=== PATIENT | male | born 1940 | race Caucasian/White ===

== ENCOUNTER 2016-06-11 08:45 | Day surgery (SDC) | payer MEDICARE, BC ==
[~2016-06-11] VITALS: Ht 170.2 cm; Wt 72.0 kg
[~2016-06-11 08:45] MED LIST: ASPI-496 PO; BRIN8DRO EACHEYE; LOVA20TA2 PO; MULT1TAB13 PO
[2016-06-11 09:50] LABS: HEMOGLOBIN 14.5 g/dL (13.7-18.0)
[2016-06-11] MEDS ORDERED: SODIUM CHLORIDE 0.9% 1,000 ML IV SCH (09:51)
[2016-06-11 09:52] VITALS: BP 133/74
[2016-06-11 10:14] LABS: DIFF TOTAL CELLS COUNTED 100 CELL DIFF
[2016-06-11 10:16] LABS: VERIFY COUNTS? YES
[2016-06-11] MEDS ORDERED: FENTANYL PF 100 MCG/2ML ONE (10:28)
[2016-06-11] MEDS ORDERED: MIDAZOLAM 1 MG/ML, 5ML ONE (10:29)
[2016-06-11] MEDS ORDERED: LIDOCAINE 4% TOPICAL SOLUTION 50 ML ONE (12:00)
[2016-06-11] MEDS ORDERED: EPINEPHRINE SYRINGE 0.1 MG/ML, 10ML ONE (12:00)
[2016-06-11] MEDS ORDERED: LIDOCAINE GEL 2%, 5ML ONE (12:00)
[2016-06-11] MEDS ORDERED: LIDOCAINE 2%, 20ML ONE (12:00)
== END 2016-06-11 14:10 | disposition home or self-care (01) ==
LOC: OUT 08:45
PROVIDERS: ATTEND Internal Medicine Pulmonary Disease
DX: J40 Bronchitis, not specified as acute or chronic (principal); Z87.891 Personal history of nicotine dependence
CPT/HCPCS: 31623; 31625; 36415; 85025; 85610; 85730; 87070; 87102; 87205; 88104; 88112; 88305; J2250; J3010; J3490; J7030; 31624

== ENCOUNTER → 2016-10-01 | Outpatient (CLI) | payer MEDICARE, BC ==
[~2016-10-01] MED LIST changes: +OMNIPAQUE 350 MG/ML, 75ML BOTTLE ONE
== END | disposition home or self-care (01) ==
LOC: CFH 08:34
PROVIDERS: ATTEND Internal Medicine Pulmonary Disease
DX: J44.9 Chronic obstructive pulmonary disease, unspecified (principal); J98.11 Atelectasis; I25.10 Atherosclerotic heart disease of native coronary artery without angina pectoris; R91.8 Other nonspecific abnormal finding of lung field
CPT/HCPCS: 71260; 82565; Q9967

== ENCOUNTER → 2017-01-22 | Outpatient (CLI) | payer MEDICARE, BC | END | disposition home or self-care (01) | LOC: CFH 09:23 | PROVIDERS: ATTEND Internal Medicine Pulmonary Disease | DX: J43.2 Centrilobular emphysema (principal); R91.1 Solitary pulmonary nodule; M85.88 Other specified disorders of bone density and structure, other site; M48.54XA Collapsed vertebra, not elsewhere classified, thoracic region, initial encounter for fracture; K76.89 Other specified diseases of liver; I25.10 Atherosclerotic heart disease of native coronary artery without angina pectoris | CPT/HCPCS: 71260; Q9967 ==

== ENCOUNTER 2017-02-13 10:24 | Observation (INO) | payer MEDICARE, BC ==
[~2017-02-13] VITALS: Ht 177.8 cm; Wt 71.0 kg
[~2017-02-13 10:24] MED LIST changes: +ALPR0.5T6 PO; -OMNIPAQUE 350 MG/ML, 75ML BOTTLE ONE; +areds PO
[2017-02-13] MEDS ORDERED: LACTATED RINGERS 1,000 ML IV SCH (10:45)
[2017-02-13 11:02] VITALS: BP 127/78
[2017-02-13] MEDS ORDERED: LIDOCAINE-MPF 2% ,5ML ONE (13:28)
[2017-02-13] MEDS ORDERED: MIDAZOLAM 1 MG/ML, 2ML ONE (13:28)
[2017-02-13] MEDS ORDERED: FENTANYL PF 100 MCG/2ML ONE ×2 (13:28)
[2017-02-13] MEDS ORDERED: PROPOFOL 10 MG/ML, 20ML ONE ×2 (13:28)
[2017-02-13] MEDS ORDERED: ROCURONIUM 10 MG/ML,10ML ONE (13:29)
[2017-02-13] MEDS ORDERED: NEOSTIGMINE 1 MG/ML, 10ML ONE (13:55)
[2017-02-13] MEDS ORDERED: DEXAMETHASONE 4 MG/ML, 1ML ONE ×2 (14:08)
[2017-02-13] MEDS ORDERED: ONDANSETRON 2MG/ML, 2ML ONE ×2 (15:24)
[2017-02-13] MEDS ORDERED: ONDANSETRON 2MG/ML, 2ML IVPush PRN (16:00)
[2017-02-13] MEDS ORDERED: FENTANYL PF 100 MCG/2ML IV PRN (16:00)
[2017-02-13] MEDS ORDERED: LABETALOL 5MG/ML, 20ML IV PRN (16:00)
[2017-02-13] MEDS ORDERED: OXYcodone 5 MG/5 ML ORAL.SOL UDC PO PRN (16:00)
[2017-02-13] MEDS ORDERED: hydrALAzine 20 MG/ML, 1ML IV PRN (16:00)
[2017-02-13] MEDS ORDERED: MEPERIDINE/PF 25MG/0.5ML IVPush PRN (16:00)
[2017-02-13] MEDS ORDERED: ACETAMINOPHEN 325 MG TABLET PO PRN (16:00)
[2017-02-13] MEDS ORDERED: ALBUTEROL SULFATE 2.5 MG/3 ML NPPB PRN (16:00)
[2017-02-13] MEDS ORDERED: PROMETHAZINE 25 MG/ML, 1ML IV PRN (16:00)
[2017-02-13] MEDS ORDERED: HYDROmorphone 1 MG/ML, 1ML IV PRN (16:00)
== END 2017-02-13 19:00 | disposition home or self-care (01) ==
LOC: OUT 10:24 → ORIP 15:59
PROVIDERS: ADMIT Internal Medicine Critical Care Medicine; ATTEND Internal Medicine Critical Care Medicine
DX: R59.1 Generalized enlarged lymph nodes (principal); R91.8 Other nonspecific abnormal finding of lung field; R06.00 Dyspnea, unspecified
CPT/HCPCS: 31623; 31625; 31627; 71010; 76000; 88108; 88112; 88172; 88173; 88177; 88184; 88185; 88305; 93005; G0378; J1100; J2250; J2405; J2704; J2710; J3010; J3490; J7120

== ENCOUNTER → 2017-06-04 | Outpatient (CLI) | payer MEDICARE, BC | END | disposition home or self-care (01) | LOC: PETCFH 10:00 | PROVIDERS: ATTEND Internal Medicine Hematology & Oncology | DX: R91.8 Other nonspecific abnormal finding of lung field (principal); C91.10 Chronic lymphocytic leukemia of B-cell type not having achieved remission | CPT/HCPCS: 78815; A9552 ==

== ENCOUNTER → 2017-06-10 | Outpatient (CLI) | payer MEDICARE, BC | END | disposition home or self-care (01) | LOC: ROC 13:28 | PROVIDERS: ATTEND Radiology Radiation Oncology | DX: C34.31 Malignant neoplasm of lower lobe, right bronchus or lung (principal); Z83.3 Family history of diabetes mellitus; Z79.82 Long term (current) use of aspirin | CPT/HCPCS: G0463 ==

== ENCOUNTER → 2017-09-23 | Outpatient (CLI) | payer MEDICARE, BC | END | disposition home or self-care (01) | LOC: ROC 07:58 | PROVIDERS: ATTEND Radiology Radiation Oncology | DX: C34.31 Malignant neoplasm of lower lobe, right bronchus or lung (principal); I25.10 Atherosclerotic heart disease of native coronary artery without angina pectoris; I70.0 Atherosclerosis of aorta; C91.10 Chronic lymphocytic leukemia of B-cell type not having achieved remission; Z87.891 Personal history of nicotine dependence; Z79.82 Long term (current) use of aspirin | CPT/HCPCS: G0463 ==

== ENCOUNTER → 2017-09-23 | Outpatient (CLI) | payer MEDICARE, BC | END | disposition home or self-care (01) | LOC: CFH 08:28 | PROVIDERS: ATTEND Radiology Radiation Oncology | DX: C91.10 Chronic lymphocytic leukemia of B-cell type not having achieved remission (principal); C34.31 Malignant neoplasm of lower lobe, right bronchus or lung; I70.0 Atherosclerosis of aorta; I25.10 Atherosclerotic heart disease of native coronary artery without angina pectoris; K76.89 Other specified diseases of liver; J98.11 Atelectasis; M48.54XA Collapsed vertebra, not elsewhere classified, thoracic region, initial encounter for fracture; R91.8 Other nonspecific abnormal finding of lung field | CPT/HCPCS: 71250 ==

== ENCOUNTER → 2018-01-14 | Outpatient (CLI) | payer MEDICARE, BC | END | disposition home or self-care (01) | LOC: ROC 08:04 | PROVIDERS: ATTEND Radiology Radiation Oncology | DX: C34.31 Malignant neoplasm of lower lobe, right bronchus or lung (principal); C91.10 Chronic lymphocytic leukemia of B-cell type not having achieved remission | CPT/HCPCS: G0463 ==

== ENCOUNTER → 2018-01-14 | Outpatient (CLI) | payer MEDICARE, BC | END | disposition home or self-care (01) | LOC: CFH 09:18 | PROVIDERS: ATTEND Radiology Radiation Oncology | DX: J98.11 Atelectasis (principal); J98.4 Other disorders of lung; R91.8 Other nonspecific abnormal finding of lung field; C34.31 Malignant neoplasm of lower lobe, right bronchus or lung | CPT/HCPCS: 71250 ==

== ENCOUNTER → 2018-06-11 | Outpatient (CLI) | payer MEDICARE, BC | END | disposition home or self-care (01) | LOC: ROC 07:56 | PROVIDERS: ATTEND Radiology Radiation Oncology | DX: Z08 Encounter for follow-up examination after completed treatment for malignant neoplasm (principal); C34.31 Malignant neoplasm of lower lobe, right bronchus or lung | CPT/HCPCS: G0463 ==

== ENCOUNTER → 2018-06-11 | Outpatient (CLI) | payer MEDICARE, BC | END | disposition home or self-care (01) | LOC: CFH 08:37 | PROVIDERS: ATTEND Radiology Radiation Oncology | DX: J98.11 Atelectasis (principal); C34.31 Malignant neoplasm of lower lobe, right bronchus or lung; I10 Essential (primary) hypertension; Z87.891 Personal history of nicotine dependence | CPT/HCPCS: 71250 ==

== ENCOUNTER 2018-09-16 10:43 | Observation (INO) | payer MEDICARE, BC ==
[~2018-09-16] VITALS: Ht 177.8 cm; Wt 71.8 kg
[2018-09-16 11:07] VITALS: BP 125/69
[2018-09-16] MEDS ORDERED: WARF-36 PO (11:21)
[2018-09-16 11:49] LABS: ANION GAP 8 mmol/L (5-15); CALCIUM 8.4 mg/dL (8.5-10.1); CHLORIDE 112 mmol/L (98-107); CREATININE 0.98 mg/dL (0.7-1.3); INTERNATIONAL NORMALIZED RATIO 1.29 (0.93-1.1); PROTHROMBIN TIME 13.4 Seconds (9.6-11.5)
[2018-09-16 11:51] LABS: MEAN CORPUSCULAR HEMOGLOBIN 31.8 pg (27.5-34.5); MEAN CORPUSCULAR HGB CONC 32.7 g/dL (33.2-36.2); MEAN CORPUSCULAR VOLUME 97.3 fL (81-97); MEAN PLATELET VOLUME 8.3 fL (7.4-10.4); PLATELET COUNT 210 x10^3/uL (130-400); RED BLOOD COUNT 3.93 x10^6/uL (4.38-5.82); RED CELL DISTRIBUTION WIDTH 17.2 % (9.4-14.8)
[2018-09-16 12:15] LABS: BAND#(MANUAL) 0.49 x10^3/uL; BANDS%(MANUAL) 1 % (0-7); MD YES; SEG#(MANUAL) 4.88 x10^3/uL (1.8-6.8); SEGS% (MANUAL) 10 % (42-75)
[2018-09-16 12:16] LABS: <PLATELET ESTIMATE> ADEQUATE; <PLT MORPHOLOGY> NORMAL PLT MORPH; <RBC MORPHOLOGY> NORMAL; LYMPH#(MANUAL) 41.48 x10^3/uL (1-3.4); LYMPHS% (MANUAL) 85 % (22-44); MONOS#(MANUAL) 0.49 x10^3/uL (0.3-2.7); MONOS% (MANUAL) 1 % (2-9); REACTIVE LYMPHS # (MANUAL) 1.46 x10^3/uL (0-0)
[2018-09-16 12:20] LABS: REACTIVE LYMPHS % (MANUAL) 3 % (0-0)
[2018-09-16] MEDS ORDERED: HEPARIN 1,000 UNITS/ML, 10ML ONE (12:50)
[2018-09-16] MEDS ORDERED: MIDAZOLAM 1 MG/ML, 2ML ONE (12:50)
[2018-09-16] MEDS ORDERED: LIDOCAINE 1%, 20ML ONE (12:50)
[2018-09-16] MEDS ORDERED: FENTANYL PF 100 MCG/2ML ONE (12:50)
[2018-09-16] MEDS ORDERED: VERAPAMIL 2.5 MG/ML, 2ML ONE (12:50)
[2018-09-16] MEDS ORDERED: BIVALIRUDIN 250 MG ONE (12:51)
[2018-09-16] MEDS ORDERED: CLOPIDOGREL 300 MG TABLET ONE (13:39)
[2018-09-16] MEDS: SODIUM CHLORIDE 0.9% 1,000 ML IV SCH (13:43)
[2018-09-16 14:05] VITALS: BP 130/69
[2018-09-16] MEDS ORDERED: WARFARIN 5 MG TABLET PO-COUM SCH (18:00)
[2018-09-16] MEDS ORDERED: BIVALIRUDIN 250 MG in SODIUM CHLORIDE 0.9% 50 ML IV SCH (20:00)
[2018-09-16 20:10] LABS: TROPONIN I 0.165 ng/mL (0.000-0.045)
[2018-09-16 20:27] VITALS: BP 123/66
[2018-09-16] MEDS ORDERED: LOVASTATIN 20 MG TABLET PO SCH (21:00)
[2018-09-17 01:12] VITALS: BP 125/73
[2018-09-17 05:35] LABS: CHLORIDE 111 mmol/L (98-107)
[2018-09-17 05:41] LABS: ANION GAP 6 mmol/L (5-15); CALCIUM 8.1 mg/dL (8.5-10.1); CREATININE 0.93 mg/dL (0.7-1.3)
[2018-09-17] MEDS: SODIUM CHLORIDE 0.9% 1,000 ML IV SCH ×2 (07:09→07:12)
[2018-09-17 08:05] VITALS: BP 129/75
[2018-09-17] MEDS ORDERED: ASPIRIN 81 MG TABLET EC PO SCH ×2 (09:00)
[2018-09-17] MEDS ORDERED: MULTIVITAMINS/MINERALS TABLET PO SCH (09:00)
[2018-09-17] MEDS ORDERED: CLOPIDOGREL 75 MG TABLET PO SCH (09:00)
[2018-09-17] MEDS ORDERED: CLOP75TA PO (09:26)
== END 2018-09-17 10:53 | disposition home or self-care (01) ==
LOC: CACL 10:43 → 5SO 13:44 → DCLOUNGE 09-17 10:38
PROVIDERS: ADMIT Internal Medicine Cardiovascular Disease; ATTEND Internal Medicine Cardiovascular Disease
DX: R07.89 Other chest pain (principal); I25.10 Atherosclerotic heart disease of native coronary artery without angina pectoris; E78.2 Mixed hyperlipidemia; I25.82 Chronic total occlusion of coronary artery; C91.10 Chronic lymphocytic leukemia of B-cell type not having achieved remission; Z87.891 Personal history of nicotine dependence; Z79.82 Long term (current) use of aspirin; Z79.01 Long term (current) use of anticoagulants; Z79.899 Other long term (current) drug therapy; Z92.3 Personal history of irradiation; Z86.73 Personal history of transient ischemic attack (TIA), and cerebral infarction without residual deficits
CPT/HCPCS: 36415; 80048; 84484; 85018; 85025; 85610; 85730; 93005; 93458; 99156; 99157; C1725; C1769; C1874; C1887; C1894; C9600; G0378; J0583; J1644; J2250; J3010; J3490; Q9967

== ENCOUNTER 2018-10-21 08:04 | Outpatient (CLI) | payer MEDICARE, BC | END 2018-10-21 23:59 | disposition home or self-care (01) | LOC: ROC 08:04 | PROVIDERS: ATTEND Radiology Radiation Oncology | DX: Z08 Encounter for follow-up examination after completed treatment for malignant neoplasm (principal); Z85.118 Personal history of other malignant neoplasm of bronchus and lung; Z88.8 Allergy status to other drugs, medicaments and biological substances | CPT/HCPCS: G0463 ==

== ENCOUNTER 2018-10-21 09:46 | Outpatient (CLI) | payer MEDICARE, BC | END 2018-10-21 23:59 | disposition home or self-care (01) | LOC: CFH 09:46 | PROVIDERS: ATTEND Radiology Radiation Oncology | DX: C34.11 Malignant neoplasm of upper lobe, right bronchus or lung (principal); J47.9 Bronchiectasis, uncomplicated | CPT/HCPCS: 71250; G0463 ==

== ENCOUNTER → 2019-02-16 | Outpatient (CLI) | payer MEDICARE, BC ==
[~2019-02-16] MED LIST changes: +CLOP75TA PO; +WARF-36 PO
== END | disposition home or self-care (01) ==
LOC: CFH 08:53
PROVIDERS: ATTEND Radiology Radiation Oncology
DX: C34.31 Malignant neoplasm of lower lobe, right bronchus or lung (principal); J98.11 Atelectasis; Z87.891 Personal history of nicotine dependence
CPT/HCPCS: 71250

== ENCOUNTER → 2019-02-16 | Outpatient (CLI) | payer MEDICARE, BC | END | disposition home or self-care (01) | LOC: ROC 09:03 | PROVIDERS: ATTEND Radiology Radiation Oncology | DX: C34.31 Malignant neoplasm of lower lobe, right bronchus or lung (principal); Z88.8 Allergy status to other drugs, medicaments and biological substances; Z87.891 Personal history of nicotine dependence | CPT/HCPCS: G0463 ==

== ENCOUNTER 2019-05-27 09:02 | Outpatient (CLI) | payer MEDICARE, BC | END 2019-05-27 23:59 | disposition home or self-care (01) | LOC: ROC 09:02 | PROVIDERS: ATTEND Radiology Radiation Oncology | DX: Z08 Encounter for follow-up examination after completed treatment for malignant neoplasm (principal); C34.31 Malignant neoplasm of lower lobe, right bronchus or lung | CPT/HCPCS: G0463 ==

== ENCOUNTER → 2019-05-27 | Outpatient (CLI) | payer MEDICARE, BC | END | disposition home or self-care (01) | LOC: CFH 09:46 | PROVIDERS: ATTEND Radiology Radiation Oncology | DX: C34.31 Malignant neoplasm of lower lobe, right bronchus or lung (principal); J43.9 Emphysema, unspecified; I70.0 Atherosclerosis of aorta; J98.4 Other disorders of lung; M51.34 Other intervertebral disc degeneration, thoracic region; J47.9 Bronchiectasis, uncomplicated | CPT/HCPCS: 71250 ==

== ENCOUNTER 2019-06-10 07:07 | Outpatient (CLI) | payer MEDICARE, BC ==
[2019-06-10] MEDS ORDERED: levothyroxine PO (08:59)
[2019-06-10] MEDS ORDERED: AREDS PO (08:59)
== END 2019-06-10 23:59 | disposition home or self-care (01) ==
LOC: RAD 07:07
PROVIDERS: ATTEND Internal Medicine
DX: C34.31 Malignant neoplasm of lower lobe, right bronchus or lung (principal); C83.00 Small cell B-cell lymphoma, unspecified site; R91.1 Solitary pulmonary nodule; J44.9 Chronic obstructive pulmonary disease, unspecified; R91.8 Other nonspecific abnormal finding of lung field; Z79.01 Long term (current) use of anticoagulants; Z95.5 Presence of coronary angioplasty implant and graft
CPT/HCPCS: 71250

== ENCOUNTER 2019-06-10 08:25 | Day surgery (SDC) | payer MEDICARE, BC ==
[~2019-06-10] VITALS: Ht 177.8 cm; Wt 71.5 kg
[2019-06-10 08:54] VITALS: BP 136/87
[2019-06-10] MEDS ORDERED: LACTATED RINGERS 1,000 ML IV SCH (08:57)
[2019-06-10] MEDS ORDERED: levothyroxine PO (08:59)
[2019-06-10] MEDS ORDERED: AREDS PO (08:59)
[2019-06-10 09:27] LABS: INTERNATIONAL NORMALIZED RATIO 1.07 (0.93-1.1); PROTHROMBIN TIME 11.4 Seconds (9.6-11.5)
[2019-06-10] MEDS ORDERED: FENTANYL PF 250 MCG/5ML ONE (10:36)
[2019-06-10] MEDS ORDERED: FENTANYL PF 100 MCG/2ML IV PRN (11:30)
[2019-06-10] MEDS ORDERED: PROMETHAZINE 25 MG/ML, 1ML IV PRN (11:30)
[2019-06-10] MEDS ORDERED: METOPROLOL 1 MG/ML, 5ML IV PRN (11:30)
[2019-06-10] MEDS ORDERED: ALBUTEROL/IPRATROPIUM 2.5MG/0.5MG, 3 ML NPPB PRN (11:30)
[2019-06-10] MEDS ORDERED: hydrALAzine 20 MG/ML, 1ML IV PRN (11:30)
[2019-06-10] MEDS ORDERED: OXYcodone 5 MG/5 ML ORAL.SOL UDC PO PRN (11:30)
[2019-06-10] MEDS ORDERED: MEPERIDINE/PF 25MG/ML,1ML IVPush PRN (11:30)
[2019-06-10] MEDS ORDERED: MIDAZOLAM 1 MG/ML, 2ML IV PRN (11:30)
[2019-06-10] MEDS ORDERED: HYDROmorphone 2 MG/ML, 1ML IVPush PRN (11:30)
[2019-06-10] MEDS ORDERED: ACETAMINOPHEN 325 MG TABLET PO PRN (11:30)
[2019-06-10] MEDS ORDERED: ONDANSETRON 2MG/ML, 2ML ONE (12:09)
[2019-06-10] MEDS ORDERED: ROCURONIUM 10MG/ML,5ML ONE (12:09)
[2019-06-10] MEDS ORDERED: PROPOFOL 10 MG/ML, 20ML ONE (12:09)
[2019-06-10] MEDS ORDERED: NEOSTIGMINE 1 MG/ML, 10ML ONE (12:09)
[2019-06-10] MEDS ORDERED: DEXAMETHASONE 4 MG/ML, 1ML ONE (12:09)
[2019-06-10] MEDS ORDERED: GLYCOPYRROLATE 0.2MG/1ML, 5ML ONE (12:09)
== END 2019-06-10 14:00 | disposition home or self-care (01) ==
LOC: OUT 08:25
PROVIDERS: ATTEND Internal Medicine
DX: R91.8 Other nonspecific abnormal finding of lung field (principal); J98.4 Other disorders of lung; J44.9 Chronic obstructive pulmonary disease, unspecified; E78.5 Hyperlipidemia, unspecified; I25.10 Atherosclerotic heart disease of native coronary artery without angina pectoris; I25.2 Old myocardial infarction; Z88.8 Allergy status to other drugs, medicaments and biological substances; Z79.01 Long term (current) use of anticoagulants; Z95.5 Presence of coronary angioplasty implant and graft; Z85.118 Personal history of other malignant neoplasm of bronchus and lung; Z79.899 Other long term (current) drug therapy; Z79.82 Long term (current) use of aspirin; Z98.890 Other specified postprocedural states; Z87.891 Personal history of nicotine dependence; Z72.89 Other problems related to lifestyle; Z85.72 Personal history of non-Hodgkin lymphomas; Z82.49 Family history of ischemic heart disease and other diseases of the circulatory system
CPT/HCPCS: 31624; 31627; 31628; 36415; 71045; 71250; 85610; 85730; 87070; 87102; 87205; 88112; 88172; 88173; 88177; 88305; 93005; J1100; J2405; J2704; J2710; J3010; J7120; 76000

== ENCOUNTER 2019-11-16 08:57 | Outpatient (CLI) | payer MEDICARE, BC | END 2019-11-16 23:59 | disposition home or self-care (01) | LOC: ROC 08:57 | PROVIDERS: ATTEND Radiology Radiation Oncology | DX: C34.31 Malignant neoplasm of lower lobe, right bronchus or lung (principal); I25.10 Atherosclerotic heart disease of native coronary artery without angina pectoris; E78.5 Hyperlipidemia, unspecified; E03.9 Hypothyroidism, unspecified; Z79.01 Long term (current) use of anticoagulants; Z79.82 Long term (current) use of aspirin; Z87.891 Personal history of nicotine dependence; Z79.899 Other long term (current) drug therapy | CPT/HCPCS: G0463 ==

== ENCOUNTER 2019-11-16 15:50 | Observation (INO) | payer MEDICARE, BC ==
[~2019-11-16] VITALS: Ht 175.3 cm; Wt 68.7 kg
--- NOTE | 2019-11-16 16:23 | NUR ---
THIS IS A 79 YO M W/ C/O SOB. PT HAD CT DONE TODAY THROUGH PRIMARY CARE WHICH SHOWED "FLUID ON THE LUNGS". PT TACHYPNEIC AND TACHYCARDIC, OTHER VS WDL. PIV STARTED, LABS DRAWN AND SENT TO LAB. PT RESTING ON GURNEY W/ CALL LIGHT IN REACH AND SIDE RAILS UPX2. NADN. DENIES FURTHER NEEDS AT THIS TIME.
[2019-11-16 16:54] LABS: MEAN CORPUSCULAR HEMOGLOBIN 31.7 pg (27.5-34.5); MEAN CORPUSCULAR HGB CONC 32.8 g/dL (33.2-36.2); MEAN CORPUSCULAR VOLUME 96.7 fL (81-97); MEAN PLATELET VOLUME 8.6 fL (7.4-10.4); PLATELET COUNT 326 x10^3/uL (130-400); RED BLOOD COUNT 3.84 x10^6/uL (4.38-5.82); RED CELL DISTRIBUTION WIDTH 18.8 % (9.4-14.8)
[2019-11-16 17:02] LABS: MD YES
[2019-11-16] MEDS ORDERED: LIDOCAINE 1%, 10ML ONE (17:02)
[2019-11-16 17:06] LABS: ANION GAP 8 mmol/L (5-15); CALCIUM 8.8 mg/dL (8.5-10.1); CHLORIDE 108 mmol/L (98-107); CREATININE 0.89 mg/dL (0.7-1.3)
--- NOTE | 2019-11-16 17:12 | NUR ---
PT TO IR.
--- NOTE | 2019-11-16 17:39 | NUR ---
PT RETURNED FROM IR. PER IR TECH PULLED 2.2L OFF. PT TACHYPNEIC, OTHER VS WDL. NADN. PT RESTING ON [employer] W/ CALL LIGHT IN REACH.
[2019-11-16 17:43] LABS: BAND#(MANUAL) 0.92 x10^3/uL; BANDS%(MANUAL) 2 % (0-7); BASOS#(MANUAL) 0.46 x10^3/uL (0-0.1); BASOS% (MANUAL) 1 % (0-1); LYMPH#(MANUAL) 38.56 x10^3/uL (1-3.4); LYMPHS% (MANUAL) 84 % (22-44); MONOS#(MANUAL) 0.46 x10^3/uL (0.3-2.7); MONOS% (MANUAL) 1 % (2-9); REACTIVE LYMPHS # (MANUAL) 1.38 x10^3/uL (0-0); REACTIVE LYMPHS % (MANUAL) 3 % (0-0); SEG#(MANUAL) 4.13 x10^3/uL (1.8-6.8); SEGS% (MANUAL) 9 % (42-75)
[2019-11-16 17:44] LABS: <PLATELET ESTIMATE> ADEQUATE; <PLT MORPHOLOGY> NORMAL PLT MORPH; <RBC MORPHOLOGY> NORMAL
--- NOTE | 2019-11-16 18:08 | NUR ---
PT UPDATED ON POC FOR ADMIT. AMBULATED W/ A STEADY GAIT TO PHONE TO UPDATE .
--- NOTE | 2019-11-16 18:20 | NUR ---
ADMITTING PROVIDER ROMAN TAPIA AT BEDSIDE.
--- NOTE | 2019-11-16 18:50 | NUR ---
REPORT GIVEN TO KARLEE DORAN. PT IS RESTING ON [employer] [facility] W/ CALL LIGHT IN REACH AND SIDE RAILS UPX2. DUNCAN MALLORY.
[2019-11-16] MEDS ORDERED: BISACODYL 10 MG SUPP PR PRN (19:00)
[2019-11-16] MEDS ORDERED: POLYETHYLENE GLYCOL 17 GM PACKET PO PRN (19:00)
[2019-11-16] MEDS ORDERED: ONDANSETRON ODT 4 MG PO PRN (19:00)
[2019-11-16] MEDS ORDERED: ACETAMINOPHEN 325 MG TABLET PO PRN (19:00)
[2019-11-16] MEDS ORDERED: SODIUM CHLORIDE FLUSH 10ML SYR IVF PRN (19:00)
--- NOTE | 2019-11-16 19:01 | NUR ---
PT REPORTS DECREASED SOB. UPDATED ON POC, CALL LIGHT WITHIN REACH, MONITORING IN PLACE.
[2019-11-16 19:14] LABS: INTERNATIONAL NORMALIZED RATIO 1.54 (0.93-1.1); PROTHROMBIN TIME 15.9 Seconds (9.6-11.5)
[2019-11-16] MEDS ORDERED: LOVASTATIN 20 MG TABLET PO SCH (21:00)
--- NOTE | 2019-11-16 21:41 | NUR ---
PT PROVIDED MEAL AT THIS TIME. MONITORING IN PLACE, CALL LIGHT WITHIN REACH.
[2019-11-16 22:25] VITALS: BP 147/69
[2019-11-16] MEDS: AREDS PO SCH (22:30)
[2019-11-16] MEDS: SODIUM CHLORIDE FLUSH 10ML SYR IVF SCH (22:39)
[2019-11-17 00:52] VITALS: BP 114/69
[2019-11-17] MEDS ORDERED: LEVOTHYROXINE 25 MCG TABLET PO SCH (06:00)
[2019-11-17 07:55] VITALS: BP 120/75
[2019-11-17] MEDS: AREDS PO SCH (09:00)
[2019-11-17] MEDS: SENNA/DOCUSATE TABLET PO SCH ×2 (09:00→09:28)
[2019-11-17] MEDS ORDERED: ASPIRIN 81 MG TABLET EC PO SCH (09:00)
[2019-11-17] MEDS ORDERED: MULTIVITAMINS/MINERALS TABLET PO SCH (09:00)
[2019-11-17] MEDS ORDERED: CLOPIDOGREL 75 MG TABLET PO SCH (09:00)
[2019-11-17] MEDS: SODIUM CHLORIDE FLUSH 10ML SYR IVF SCH (09:30)
[2019-11-17] MEDS ORDERED: WARFARIN 5 MG TABLET PO-COUM SCH (18:00)
[2019-12-01] MEDS ORDERED: METO5TAB57 PO (14:42)
[2019-12-01] MEDS ORDERED: LACT10SO28 PO (15:14)
== END 2019-11-17 14:20 | disposition home or self-care (01) ==
LOC: ED 17:58 → EDIP 18:05 → INTOOBSV 18:05 → ED 18:13 → 3N 22:23
PROVIDERS: ADMIT Hospitalist; ATTEND Internal Medicine
DX: J96.01 Acute respiratory failure with hypoxia (principal); J91.0 Malignant pleural effusion; E03.9 Hypothyroidism, unspecified; I25.10 Atherosclerotic heart disease of native coronary artery without angina pectoris; E78.5 Hyperlipidemia, unspecified; D72.829 Elevated white blood cell count, unspecified; Z79.82 Long term (current) use of aspirin; Z79.899 Other long term (current) drug therapy; Z87.891 Personal history of nicotine dependence; Z85.118 Personal history of other malignant neoplasm of bronchus and lung; Z79.01 Long term (current) use of anticoagulants; Z95.5 Presence of coronary angioplasty implant and graft
CPT/HCPCS: 32555; 36415; 71045; 71250; 80048; 82040; 82042; 83615; 85025; 85610; 87070; 87205; 88112; 88305; 88341; 88342; 89051; 93005; 99285; G0378; G0463; J3490

== ENCOUNTER → 2019-11-16 | Outpatient (CLI) | payer MEDICARE, BC ==
[~2019-11-16] MED LIST changes: +AREDS PO; +levothyroxine PO
== END | disposition home or self-care (01) ==
LOC: CFH 11:43
PROVIDERS: ATTEND Radiology Radiation Oncology
DX: C34.31 Malignant neoplasm of lower lobe, right bronchus or lung (principal); J90 Pleural effusion, not elsewhere classified; J98.19 Other pulmonary collapse; M48.55XA Collapsed vertebra, not elsewhere classified, thoracolumbar region, initial encounter for fracture; R91.1 Solitary pulmonary nodule
CPT/HCPCS: 71250

== ENCOUNTER 2020-03-07 07:04 | Day surgery (SDC) | payer MEDICARE, BC ==
[~2020-03-07] VITALS: Ht 170.2 cm; Wt 68.6 kg
[~2020-03-07 07:04] MED LIST changes: +LACT10SO28 PO; +METO5TAB57 PO
[2020-03-07 07:35] VITALS: BP 137/82
[2020-03-07] MEDS ORDERED: SODIUM CHLORIDE 0.9% 1,000 ML IV SCH (08:00)
[2020-03-07] MEDS ORDERED: LIDOCAINE 1%, 10ML ONE (09:14)
[2020-03-07] MEDS ORDERED: FENTANYL PF 100 MCG/2ML ONE (09:32)
[2020-03-07] MEDS ORDERED: MIDAZOLAM 1 MG/ML, 5ML ONE (09:32)
== END 2020-03-07 10:55 | disposition home or self-care (01) ==
LOC: OUT 07:04
PROVIDERS: ATTEND Pathology Hematology
DX: Z46.82 Encounter for fitting and adjustment of non-vascular catheter (principal); C91.10 Chronic lymphocytic leukemia of B-cell type not having achieved remission; C78.01 Secondary malignant neoplasm of right lung; Z79.890 Hormone replacement therapy; Z79.899 Other long term (current) drug therapy; Z87.891 Personal history of nicotine dependence; Z95.5 Presence of coronary angioplasty implant and graft; Z98.890 Other specified postprocedural states; Z80.0 Family history of malignant neoplasm of digestive organs
CPT/HCPCS: 32552; 99156; 99157; J2250; J3010; J7030